=== PATIENT | female | born 1960 | race Caucasian/White ===

== ENCOUNTER 2017-03-30 19:38 | Emergency (ER) | payer MEDICAID, OTHER ==
[~2017-03-30] VITALS: Ht 162.6 cm; Wt 79.0 kg
[2017-03-30 20:01] VITALS: Ht 162.6 cm; Wt 79.0 kg
[2017-03-30] MEDS ORDERED: SOD CHLORIDE 0.9% 1,000 ML IV STA (20:52)
[2017-03-30] MEDS ORDERED: METOCLOPRAMIDE 10 MG INJ IV STA (20:52)
[2017-03-30] MEDS ORDERED: DIPHENHYDRAMINE 50 MG INJ IV STA (20:52)
[2017-03-30 21:38] LABS: BASOPHIL # 0.1 10^3/ul (0.0-0.1); BASOPHILS % 0.4 % (0.0-2.0); EOSINOPHILS # 0.1 10^3/ul (0.0-0.5); EOSINOPHILS % 0.6 % (0.0-7.0); HEMATOCRIT 39.8 % (37.0-47.0); HEMOGLOBIN 12.6 g/dl (12.0-16.0); LYMPHOCYTES # 1.6 10^3/ul (0.8-2.9); LYMPHOCYTES % 13.7 % (15.0-51.0); MEAN CORPUSCULAR HEMOGLOBIN 27.6 pg (29.0-33.0); MEAN CORPUSCULAR HGB CONC 31.7 g/dl (32.0-37.0); MEAN CORPUSCULAR VOLUME 87.3 fl (82.0-101.0); MEAN PLATELET VOLUME 8.4 fl (7.4-10.4); MONOCYTE # 0.3 10^3/ul (0.3-0.9); MONOCYTES % 2.8 % (0.0-11.0); NEUTROPHILS % 81.7 % (39.0-77.0); PLATELET COUNT 373 10^3/UL (140-415); RED BLOOD COUNT 4.56 10^6/ul (4.20-5.40); RED CELL DISTRIBUTION WIDTH 13.2 % (11.5-14.5); WHITE BLOOD COUNT 11.3 10^3/ul (4.8-10.8)
[2017-03-30] MEDS ORDERED: [UNRECOGNIZED DRUG - OTHER] PO (21:45)
[2017-03-30 21:57] LABS: CALCIUM 9.8 mg/dl (8.4-10.2); CREATININE 0.77 mg/dl (0.44-1.00); POTASSIUM 4.1 mmol/L (3.5-5.1)
--- NOTE | 2017-03-30 22:04 | RADRPT ---
AMENDMENT: 04/10/2017 11:18:31 PM Suki Becker M.D One or more of the following dose reduction techniques were used: - Automated exposure control. - Adjustment of the mA and/or kV according to patient size. - Use of iterative reconstruction technique. Sagittal and coronal reformations were constructed. PROCEDURE: CT HEAD WITHOUT CONTRAST: CLINICAL INDICATION: 57 years of age, female, headache . COMPARISON: None available. TECHNIQUE: CT of the head was performed without IV contrast. Sagittal and coronal reformations were constructed. Dose information: The estimated radiation dose (CTDI vol mGy) for each series in this exam is 40.2 . The estimated cumulative dose (DLP mGy-cm) is 769 . FINDINGS: Parenchyma: Negative for acute intracranial hemorrhage, significant mass effect or midline shift. Jordan-white matter differentiation is maintained. Ventricles and extra-axial spaces: Ventricles, basal cisterns and sulci are appropriate for age. Visualized paranasal sinuses: Clear. Mastoid air cells: Clear. Bones: No focal abnormality. Additional comment: None. IMPRESSION: Negative for acute intracranial hemorrhage or significant mass effect. Negative for evidence of an a cute abnormality to explain headache. RPTAT: HCTS Physician Carol Date Time Electronically viewed and signed by Physician Carol on 04/10/2017 23:19 /
[2017-03-30] MEDS ORDERED: ONDA4TAB14 PO (22:19)
[2017-03-30] MEDS ORDERED: FIORICET PO (22:19)
[2017-03-30 22:44] VITALS: BP 109/67; PULSE 74; RESP 18; TEMP 98.1
--- NOTE | 2017-03-30 22:44 | ERD ---
ER Documentation Chief Complaint Date/Time DATE: 03/30/17 TIME: 22:44 Chief Complaint dizziness w/ vomiting today HPI 57-year-old female with multiple complaints including dizziness nausea and vomiting and mild headache. The patient states that she took 2 extra pills of a nutritional supplement. Patient also notes generalized malaise over the last 1-2 days. No fevers or chills. She describes a gradual onset frontal and bandlike headache that is 5 out of 10 with associated nausea. She does describe some dizziness but does not describe vertigo. No chest pain or shortness of breath. No neck stiffness or rash. ROS All systems reviewed and are negative except as per history of present illness. Medications Home Meds Active Scripts Ondansetron (Ondansetron Odt) 4 Mg Tab.rapdis, 4 MG PO Q6H Y for NAUSEA AND/OR VOMITING, #30 TAB Prov:NICOLAS SANTOS MD 03/30/17 Acetamin/Butalbital/Caffeine* (Fioricet*) [id number] Tab, 1 TAB PO Q6H Y for PAIN, #30 TAB Prov:NICOLAS SANTOS MD 03/30/17 Reported Medications [Ampitrexyl 500MG] No Conflict Check, 500 MG PO DAILY 03/30/17 Allergies Allergies: Coded Allergies: No Known Allergy (Unverified , 03/30/17) PMhx/Soc Medical and Surgical Hx: pt denies Surgical Hx History of Surgery: No Anesthesia Reaction: No Hx Neurological Disorder: No Hx Respiratory Disorders: No Hx Cardiac Disorders: No Hx Psychiatric Problems: No Hx Miscellaneous Medical Probl: Yes (HIGH CHOLESTEROL AND SUGAR PER PCP) Hx Alcohol Use: No Hx Substance Use: No Hx Tobacco Use: No Smoking Status: Never smoker Physical Exam Vitals Vital Signs Date Time Temp Pulse Resp B/P Pulse Ox O2 Delivery O2 Flow Rate FiO2 03/30/17 22:44 98.1 74 18 109/67 98 Room Air 03/30/17 21:05 97.5 66 20 129/95 99 Room Air 03/30/17 20:01 98.3 77 20 129/64 100 Physical Exam General: Well developed, well nourished, no acute distress Head: Normocephalic, atraumatic. Eyes: Pupils equally reactive, EOM intact ENT: Moist mucous membranes Neck: Supple, no lymphadenopathy Respiratory: Lungs clear bilaterally, no distress Cardiovascular: RRR, no murmurs, rubs, or gallops Abdominal: Soft, non-tender, non-distended, no peritoneal signs : Deferred MSK: No edema, no unilateral swelling, 5/5 strength Neurologic: Alert and oriented, moving all extremities, normal speech, no focal weakness, no cerebellar signs, no rash, no meningismus Skin: No rash Psych: Normal mood Result Diagram: 03/30/17211403/30/172114 Results 24 hrs Laboratory Tests Test 03/30/17 21:15 White Blood Count 11.310^3/ul Red Blood Count 4.5610^6/ul Hemoglobin 12.6g/dl Hematocrit 39.8% Mean Corpuscular Volume 87.3fl Mean Corpuscular Hemoglobin 27.6pg Mean Corpuscular Hemoglobin Concent 31.7g/dl Red Cell Distribution Width 13.2% Platelet Count 59936^3/UL Mean Platelet Volume 8.4fl Neutrophils % 81.7% Lymphocytes % 13.7% Monocytes % 2.8% Eosinophils % 0.6% Basophils % 0.4% Nucleated Red Blood Cells % 0.0/100WBC Neutrophils # (Manual) 910^3/ul Lymphocytes # 1.610^3/ul Monocytes # 0.310^3/ul Eosinophils # 0.110^3/ul Basophils # 0.110^3/ul Nucleated Red Blood Cells # 0.010^3/ul Sodium Level 144mmol/L Potassium Level 4.1mmol/L Chloride Level 100mmol/L Carbon Dioxide Level 28mmol/L Anion Gap 20 Blood Urea Nitrogen 15mg/dl Creatinine 0.77mg/dl Glucose Level 138mg/dl Calcium Level 9.8mg/dl Current Medications Medications (Trade) Dose Ordered Sig/Scout Route PRN Reason Start Time Stop Time Status Last Admin Dose Admin Sodium Chloride (NS) 1,000 ml @ 1,000 mls/hr Q1H STAT IV 03/30/17 20:52 03/30/17 21:51 DC 03/30/17 21:50 Metoclopramide HCl (Reglan) 10 mg ONCE STAT IV 03/30/17 20:52 03/30/17 20:54 DC 03/30/17 21:51 Diphenhydramine HCl (Benadryl) 25 mg ONCE STAT IV 03/30/17 20:52 03/30/17 20:54 DC 03/30/17 21:50 Procedures/MDM EKG, MONITORS, & DIAGNOSTIC IMAGING: EKG: I reviewed and interpreted a 12-lead EKG. Rhythm: Normal sinus rhythm Ectopy: None Intervals: No abnormalities ST segments: No elevations or depressions T waves: No contiguous inversions CT brain: No evidence of acute intracranial process per radiology LAB INTERPRETATION: No significant leukocytosis or electrolyte abnormality MEDICAL DECISION MAKING: Unclear etiology of the patient's symptoms however she is extremely well- appearing without signs or symptoms concerning for meningitis or infectious process. The patient is convinced that her symptoms are related to this nutritional supplement. Ingredients include vitamin C and fruit extract and she only took 2 tablets. I am not sure that this is related to these pills. However I advised to discontinue them as they are not FDA approved. Consider possible migraine or vertigo. I believe the patient would benefit from CT brain to rule out mass. No evidence of subarachnoid hemorrhage. The patient's headache is unlikely related to serious etiology. The patient does not exhibit any clinical signs or symptoms, and has no risk factors to suggest headache etiology such as subarachnoid hemorrhage, acute vertebral or carotid dissection, intracranial mass, epidural, subdural hematoma, dural venous sinus thrombosis, giant cell arteritis, or pseudotumor cerebri. ER COURSE: The patient received IV fluids Reglan and Benadryl with dramatic improvement of resolution of her symptoms. I believe the patient can be safely discharged home with close primary care follow-up. Return precautions were discussed. I kept the patient and/or family informed of laboratory and diagnostic imaging results throughout the emergency room course. DISPOSITION PLAN: We discussed follow up with the patient's primary care doctor within 24 to 48 hours as needed. We also discussed return to the emergency room for worsening symptoms or worsening condition. Outpatient referral: [None required] Discharge Medications: Fioricet, Zofran Departure Diagnosis: Primary Impression: Dizziness Additional Impression: Headache Headache type: unspecified Headache chronicity pattern: acute headache Intractability: not intractable Qualified Code: R51 - Acute nonintractable headache, unspecified headache type Condition: Good Patient Instructions: Dizziness, Unk Cause Referrals: COMM[facility]ITY CL[facility] YOU HAVE RECEIVED A MEDICAL SCREENING EXAM AND THE RESULTS INDICATE THAT YOU DO NOT HAVE A CONDITION THAT REQUIRES URGENT TREATMENT IN THE EMERGENCY DEPARTMENT. FURTHER EVALUATION AND TREATMENT OF YOUR CONDITION CAN WAIT UNTIL YOU ARE SEEN IN YOUR DOCTORS OFFICE WITHIN THE NEXT 1-2 DAYS. IT IS YOUR RESPONSIBILITY TO MAKE AN APPOINTMENT FOR FOLOW-UP CARE. IF YOU HAVE A PRIMARY DOCTOR --you should call your primary doctor and schedule an appointment IF YOU DO NOT HAVE A PRIMARY DOCTOR YOU CAN CALL OUR PHYSICIAN REFERRAL HOTLINE AT IF YOU CAN NOT AFFORD TO SEE A PHYSICIAN YOU CAN CHOSE FROM THE FOLLOWING [facility] [address] [facility] [address] [facility] [address] [facility] [address] [facility] [address] [facility]. [facility] [address] [facility] [facility] YOU HAVE RECEIVED A MEDICAL SCREENING EXAM AND THE RESULTS INDICATE THAT YOU DO NOT HAVE A CONDITION THAT REQUIRES URGENT TREATMENT IN THE EMERGENCY DEPARTMENT. FURTHER EVALUATION AND TREATMENT OF YOUR CONDITION CAN WAIT UNTIL YOU ARE SEEN IN YOUR DOCTORS OFFICE WITHIN THE NEXT 1-2 DAYS. IT IS YOUR RESPONSIBILITY TO MAKE AN APPOINTMENT FOR FOLOW-UP CARE. IF YOU HAVE A PRIMARY DOCTOR --you should call your primary doctor and schedule and appointment IF YOU DO NOT HAVE A PRIMARY DOCTOR YOU CAN CALL OUR PHYSICIAN REFERRAL HOTLINE AT . IF YOU CAN NOT AFFORD TO SEE A PHYSICIAN YOU CAN CHOSE FROM THE FOLLOWING [facility] INSTITUTIONS: [facility] [address] [place] [address] [facility] [address] 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 NICOLAS SANTOS MD Mar 30, 2017 22:44
== END 2017-03-30 22:46 | disposition home or self-care (01) ==
LOC: E/R 19:38
DX: R42 Dizziness and giddiness (principal); R51 Headache; R11.2 Nausea with vomiting, unspecified
CPT/HCPCS: 36415; 70450; 80048; 85025; 93005; 96374; 96375; J1200; J2765; J7030; Z7502

== ENCOUNTER 2018-02-24 19:50 | Emergency (ER) | END 2018-02-24 22:58 | disposition home or self-care (01) ==